=== PATIENT | female | born 1985 | race Caucasian/White ===

== ENCOUNTER → 2018-06-20 | Outpatient (CLI) | payer BC | LOC: SUN.DIA 06-06 16:47 | DX: E11.9 Type 2 diabetes mellitus without complications (principal) | CPT/HCPCS: G0109 ==

== ENCOUNTER → 2018-06-26 | Outpatient (CLI) | payer BC | LOC: SUN.DIA 06-24 13:45 | DX: E11.9 Type 2 diabetes mellitus without complications (principal) | CPT/HCPCS: G0108 ==

== ENCOUNTER → 2018-06-27 | Outpatient (CLI) | payer BC | LOC: SUN.DIA 09:30 | DX: E11.9 Type 2 diabetes mellitus without complications (principal) | CPT/HCPCS: G0109 ==

== ENCOUNTER → 2018-07-04 | Outpatient (CLI) | payer BC | LOC: SUN.DIA 09:30 | DX: E11.9 Type 2 diabetes mellitus without complications (principal) | CPT/HCPCS: G0109 ==